=== PATIENT | female | born 1985 | race Caucasian/White ===

== ENCOUNTER 2018-01-18 08:50 | Emergency (ER) | payer OTHER ==
[~2018-01-18] VITALS: Ht 157.5 cm; Wt 63.5 kg
[~2018-01-18 08:50] MED LIST: AMOCLA500 PO; Amoxicillin500 MG PO; Cleocin HCl300 MG PO; HYDR1TAB94 PO; IBUP600 PO; Naprosyn500 MG PO; PERIDEX15 ML MM; Ultram50 MG PO; Veetids 500500 MG PO
[2018-01-18] MEDS ORDERED: Augmentin 875-1 EACH PO (09:56)
== END 2018-01-18 10:23 | disposition home or self-care (01) ==
LOC: ER 08:50
DX: K11.20 Sialoadenitis, unspecified (principal); F17.200 Nicotine dependence, unspecified, uncomplicated
CPT/HCPCS: 99281

== ENCOUNTER 2018-03-25 17:34 | Emergency (ER) | payer OTHER ==
[~2018-03-25] VITALS: Ht 157.5 cm; Wt 61.2 kg
[~2018-03-25 17:34] MED LIST changes: +Augmentin 875-1 EACH PO
[2018-03-25] MEDS ORDERED: Augmentin 875-1 EACH PO (21:13)
== END 2018-03-25 21:36 | disposition home or self-care (01) ==
LOC: ER 17:34
DX: L02.01 Cutaneous abscess of face (principal); K02.9 Dental caries, unspecified; Z23 Encounter for immunization; F17.200 Nicotine dependence, unspecified, uncomplicated
CPT/HCPCS: 10060; 90471; 90714; 99283-25

== ENCOUNTER → 2018-04-25 | Outpatient (CLI) | payer OTHER ==
[2018-04-27 23:14] LABS: CHLAMYDIA TRACHOMATIS, NAA Negative (Negative); HPV 16 Negative (Negative); HPV 18 Negative (Negative); HPV OTHER HR TYPES Negative (Negative)
[2018-04-29 22:12] LABS: NEISSERIA GONORRHOEAE, NAA Negative (Negative)
== END | disposition home or self-care (01) ==
LOC: LAB 19:18 → LAB SHORT 19:18
PROVIDERS: Physician Assistant
DX: Z12.4 Encounter for screening for malignant neoplasm of cervix (principal); Z11.3 Encounter for screening for infections with a predominantly sexual mode of transmission
CPT/HCPCS: 87491; 87591; 87624; G0123

== ENCOUNTER 2018-05-11 01:53 | Emergency (ER) | payer OTHER ==
[~2018-05-11] VITALS: Ht 157.5 cm; Wt 68.0 kg
== END 2018-05-11 02:35 | disposition home or self-care (01) ==
LOC: ER 01:53
DX: M27.2 Inflammatory conditions of jaws (principal); L03.211 Cellulitis of face; F17.200 Nicotine dependence, unspecified, uncomplicated
CPT/HCPCS: 10060; 99282-25

== ENCOUNTER 2019-03-27 07:22 | Emergency (ER) | payer OTHER ==
[~2019-03-27] VITALS: Ht 157.5 cm; Wt 61.2 kg
[~2019-03-27 07:22] MED LIST changes: +IBUP800 PO
== END 2019-03-27 08:25 | disposition home or self-care (01) ==
LOC: ER 07:22
DX: Z20.2 Contact with and (suspected) exposure to infections with a predominantly sexual mode of transmission (principal); F17.200 Nicotine dependence, unspecified, uncomplicated
CPT/HCPCS: 96372; 99283-25; J0696

== ENCOUNTER → 2020-04-16 | Outpatient (CLI) | payer OTHER ==
[~2020-04-16] MED LIST changes: +BACTRIM DS TAB1 EAC1 PO; +ONDA4ODT MM
[2020-04-19 03:09] LABS: CHLAMYDIA TRACHOMATIS, NAA Negative (Negative); NEISSERIA GONORRHOEAE, NAA Negative (Negative)
[2020-04-19 14:08] LABS: HPV 16 Negative (Negative); HPV 18 Positive (Negative); HPV OTHER HR TYPES Negative (Negative)
== END | disposition home or self-care (01) ==
LOC: LAB 19:27 → LAB SHORT 19:27
PROVIDERS: Physician Assistant
DX: Z01.419 Encounter for gynecological examination (general) (routine) without abnormal findings (principal); Z11.59 Encounter for screening for other viral diseases
CPT/HCPCS: 87491; 87591; 87624; 87625; G0123